=== PATIENT | male | born 1965 | race African-American/Black ===

== ENCOUNTER 2021-07-30 00:06 | Emergency (ER) | payer OTHER ==
[~2021-07-30] VITALS: Ht 180.3 cm; Wt 87.0 kg
[2021-07-30 02:44] VITALS: BP 113/67
[2021-07-30] MEDS ORDERED: IBUPROFEN 400MG TABLET PO ONE (02:45)
[2021-07-30] MEDS ORDERED: ACETAMINOPHEN 325MG TABLET PO ONE (02:45)
== END 2021-07-30 03:41 | disposition home or self-care (01) ==
LOC: ER 00:06
DX: M54.50 Low back pain, unspecified (principal); M25.512 Pain in left shoulder; V43.62XA Car passenger injured in collision with other type car in traffic accident, initial encounter; Y93.89 Activity, other specified; Y92.488 Other paved roadways as the place of occurrence of the external cause
CPT/HCPCS: 73030; 99283